=== PATIENT | male | born 1950 | race Caucasian/White ===

== ENCOUNTER → 2023-11-04 08:00 | Outpatient (REF) | payer MEDICARE, BC, SELFPAY | LOC: HWRAD 08:00 | PROVIDERS: ATTENDING PHYSICIAN Internal Medicine Cardiovascular Disease; FAMILY PHYSICIAN Family Medicine | DX: I71.40 Abdominal aortic aneurysm, without rupture, unspecified (principal) | CPT/HCPCS: 76770 ==

== ENCOUNTER → 2024-03-29 14:51 | Outpatient (REF) | payer MEDICARE, BC, SELFPAY | LOC: RAD 14:51 | PROVIDERS: ATTENDING PHYSICIAN Family Medicine | DX: R22.42 Localized swelling, mass and lump, left lower limb (principal) | CPT/HCPCS: 93971 ==

== ENCOUNTER 2024-04-29 20:44 | Emergency (ER) | payer MEDICARE, BC, SELFPAY ==
[2024-04-29 20:46] VITALS: BP 143/66; BMI 32.3
[2024-04-29 20:49] VITALS: BP 143/66
[2024-04-29 21:00] VITALS: BP 109/97
[2024-04-29 21:19] LABS: % Basophils 1.6 % (0-2); % Eosinophils 16.8 % (0-6); % Immature Granulocytes 0.3 % (0-0.5); % Lymphocytes 18.1 % (20.5-51.1); % Monocytes 6.8 % (1.7-9.3); % Neutrophils 56.4 % (42.2-75.2); Absolute Basophils 0.2 10^3/uL (0-0.2); Absolute Eosinophils 1.9 10^3/uL (0-0.7); Absolute Monocytes 0.8 10^3/uL (0.1-0.6); Absolute Neutrophils 6.3 10^3/uL (1.4-6.5); Hematocrit 42.4 % (39.0-52.0); Hemoglobin 14.2 g/dL (13.0-18.0); Mean Corp Hgb Conc. 33.5 g/dL (33.0-37.0); Mean Corpuscular Hgb 29.8 pg (27.0-31.0); Mean Corpuscular Volume 88.9 fL (80.0-94.0); Mean Platelet Volume 9.9 fL (7.4-10.4); Nucleated Red Blood Cells % 0 % (-); Platelet Count 243 10^3/uL (130-400); Red Blood Cell Count 4.77 10^6/uL (4.70-6.10); Red Cell Dist. Width 13.7 % (11.5-14.5); White Blood Cell Count 11.1 10^3/uL (4.8-10.8)
[2024-04-29 21:31] LABS: ALT (SGPT) 42 U/L (0-50); AST (SGOT) 36 U/L (17-59); Albumin 4.3 g/dl (3.5-5.0); Alkaline Phosphatase 80 U/L (38-126); Blood Urea Nitrogen 44 mg/dl (9-20); Calcium 9.2 mg/dl (8.4-10.2); Carbon Dioxide 17 mmol/L (22-30); Chloride 105 mmol/L (98-107); Estimated Creatinine Clearance 56 ml/min; Glucose 185 mg/dl (70-99); Magnesium 2.1 mg/dl (1.6-2.3); Potassium 4.8 mmol/L (3.5-5.1); Sodium 139 mmol/L (135-145); Total Bilirubin 0.6 mg/dl (0.2-1.3); Total Protein 7.2 g/dl (6.3-8.2)
--- NOTE | 2024-04-29 21:31 | ED.GENMED ---
History of Present Illness
General
Chief Complaint: Cardiac Symptoms
Source: patient and spouse
Time Seen by Provider: 04/29/24 21:02
History of Present Illness
History of Present Illness:
73-year-old male with past medical history of CAD, AAA, hypertension, hyperlipidemia, insulin-dependent diabetes presenting to the emergency department for evaluation after stating around 6:30 PM he started to feel 'not right' checked his pulse and
reports the pulse oximeter said his heart rate was around 37 bpm. Patient states that he never felt as if he were going to syncopized, no chest pain, no shortness of breath or any other symptoms. Upon EMS arrival they report that patient was in a
sinus rhythm in the 70s with occasional PVCs but was otherwise stable. Patient states he believes he has had episodes of similar before and has worn Holter monitors with cardiology in the past. Patient takes Eliquis due to a history of atrial
fibrillation and also reports that he is on a beta-vero and is readily compliant with his medication regimen. Patient denies any fevers or infectious symptoms. During my examination patient reports he feels quite well and is otherwise
asymptomatic.
Past History
Past History
ED Past Medical History: CAD, HTN, Hypercholesterolemia, IDDM and Other (AAA)
ED Past Surgical History: Cardiac and Orthopedic
Social History
Tobacco: Non-smoker
Alcohol: None
Drug: None
Personal:
Living: with family
Review of Systems
Review of Systems
All Other Systems: ROS reviewed and negative except as documented in HPI and ROS
Phy Exam
Physical Exam
Physical Exam:
GENERAL: Alert , in no apparent distress
EYE: conjunctiva clear
NECK: Supple
ENT: o/p clr, mmm.
CARDIAC: Regular rate and rhythm
LUNGS: Clear breath sounds bilaterally, no acute respiratory distress, no wheezes/rales/rhonchi
ABDOMEN: soft, non-tender, non-distended
NEUROLOGICAL: Alert and oriented
SKIN: Warm and dry, skin intact.
MUSCULOSKELETAL: well perfused.
PSYCH: Normal and appropriate interaction.
Scores
Heart Failure Risk
Heart Failure Risk Score: Not Applicable
Heart Score for Chest Pain Patients
STEMI patient?: No
History: Slightly or Non-Suspicious
ECG: Normal
Age: >/= 65 years
Risk Factors: >/= 3 Risk Factors or History of CAD
Troponin: </= Normal Limit
Heart Score for Chest Pain Patients: 4
Heart Score Risk: 20.3% MACE over next 6 weeks
Withdrawal Assessment of Alcohol
Withdrawal Assessment Completed?: Not applicable
Course
Orders/Labs/Results
Orders:
Orders
04/29/24 20:55
Electrocardiogram (*1) Urgent
Reason for Study: Chest Pain
Cardiac Monitoring- Treatment ONCE
EKG- Treatment ONCE
IV Insert/Care/Rem.- Treatment PRN
Pulse Ox/spot Check [RESP] Urgent
Quantity: 1
Special Instructions: ON ROOM AIR
04/29/24 21:06
Complete Blood Count/With Diff Urgent
Comprehensive Metabolic Panel Urgent
Magnesium Urgent
TSH Reflex To Free T4 Urgent
Troponin I Urgent
04/29/24 21:39
0.9% Sodium Chloride 1000 ml [Nss] 1,000 ml IV BOLUS
Abnormal Lab Results
04/29/24
21:06
WBC 11.1 H 10^3/uL
(4.8-10.8)
Absolute Monos (auto) 0.8 H 10^3/uL
(0.1-0.6)
Absolute Eos (auto) 1.9 H 10^3/uL
(0-0.7)
Lymphocytes % 18.1 L %
(20.5-51.1)
Eosinophils % 16.8 H %
(0-6)
Carbon Dioxide 17 L mmol/L
(22-30)
BUN 44 H mg/dl
(9-20)
Creatinine 1.4 H mg/dL
(0.7-1.3)
Glucose 185 H mg/dl
(70-99)
04/29/24 21:06
04/29/24 21:06
Vital Signs
Initial and Last Documented VS:
Initial Vital Signs
Temp Pulse Resp BP Pulse Ox
98.5 F 71 20 143/66 96
04/29/24 20:46 04/29/24 20:46 04/29/24 20:46 04/29/24 20:46 04/29/24 20:46
Last Documented Vital Signs
Temp Pulse Resp BP Pulse Ox
98.5 F 61 20 138/67 93
04/29/24 20:46 04/29/24 23:00 04/29/24 23:00 04/29/24 23:00 04/29/24 23:00
MDM/Problems Addressed
Differential Diagnosis Includes:
Symptomatic bradycardia, PVCs, valvular dysfunction, ACS presentation
MDM/Problems Addressed:
73-year-old male presenting the emergency department for evaluation of generally feeling unwell earlier this evening around 630, took his pulse ox using the new pulse oximeter and states his heart rate was found to be in the 30s. contacted EMS
at the time who states that upon arrival patient is in a sinus rhythm in the 70s. EKG here confirms patient remains in a normal sinus rhythm. He is asymptomatic. Will check labs and continue to monitor on telemetry. Patient known to [facility]
cardiology
Chronic conditions affecting care: CAD
*Pulse Oximetry
Patient hypoxic: no
*EKG
Comparison EKG: changes noted
Heart Rate: 69
Rate: normal
Rhythm: sinus
[place]: normal axis
Interval: first degree heart block
QRS Pattern: right bundle branch block
*Pilot Control Operator Interpretation
Rate: normal
Rhythm: sinus
*Critical Care Note
Total Time (30-74mins, 75-104mins- exclusive of procedures): Not Applicable
Data Reviewed
Review of Other/Old Records Reveals: Labs and Records
Comment
Comment:
Patient's labs show a mild EMILIO compared to his usual chronic kidney disease. 1 L of IV fluids ordered. Patient advised on these findings and recommended follow-up with primary care provider. He does also have a scheduled follow-up visit the first
week of May with his cardiology. Anticipate discharge home following completion of IV fluids.
Patient Management
Escalation/DeEscalation of care consider admission/obs:
Patient remains asymptomatic, tolerating p.o. and feels well to be discharged home. Aware of return precautions to the ER. Chest pain hotline notified. Stable for discharge home otherwise
ED Attending Note
-
Portions of this chart may have been created with voice recognition software.� Occasional wrong word or��sound alike� substitutions may have occurred due to the inherent limitations of voice recognition software.
Discharge Plan
Departure
Patient Disposition: Home (Routine Discharge)
Date of Disposition: 04/29/24
Time of Disposition: 23:01
Patient with high blood pressure during this ER visit?: No
Discharge Problem:
EMILIO (acute kidney injury)
Instructions: Acute kidney injury, Chest Pain [facility] Follow Up
Prescriptions:
No Action
bupropion HCl [Wellbutrin] 75 MG tablet
75 mg PO DAILY
Patient Comments:
Pt cannot remember if he took his AM medications which include lopressor, wellbutrin, accupril, ASA, glucophage, and levimir.
metoprolol tartrate [Lopressor] 50 MG tablet
50 mg PO BID
aspirin 81 MG tablet,chewable
81 mg PO DAILY
atorvastatin 80 MG tablet
80 mg PO QPM
Jardiance 25 MG tablet
25 mg PO DAILY
zolpidem 5 MG tablet
2.5 mg PO HSPRN PRN (Reason: insomnia)
ezetimibe 10 MG tablet
10 mg PO DAILY
metformin 1,000 MG tablet
1,000 mg PO BID
insulin glargine [Lantus U-100 Insulin] 100 unit/mL Solution
45 unit SC DAILY
lisinopril 20 mg Tablet
20 mg PO DAILY
amlodipine [Norvasc] 5 mg Tablet
5 mg PO DAILY
Eliquis 5 mg Tablet
5 mg PO BID
insulin aspart U-100 [Novolog FlexPen U-100 Insulin] 300 UNITS/3 ML insulin pen
See Rx Instructions .ROUTE .COMPLEX
Rx Instructions:
14-31 units sliding scale
Kerendia 10 mg Tablet
10 mg PO DAILY
Referrals:
Wang Bynum MD [Family Provider] -
Interventions
Interventions:
*Risk Screen - Suicide Last Done: 04/29/24 20:46
*General Assessment Last Done: 04/29/24 20:46
*Neglect/Abuse Screening Last Done: 04/29/24 20:46
ED- Fall Risk Assessment Last Done: 04/29/24 21:18
*ED COVID-19 Vaccine History Last Done: 04/29/24 20:46
ED- Pulmonary Assessment Last Done: 04/29/24 21:18
ED- Cardiac Assessment Last Done: 04/29/24 21:18
Discharge Date and Time
Print Language: MOZAMBICAN
[2024-04-29 21:42] LABS: Troponin I < 0.012 ng/ml
[2024-04-29 22:00] VITALS: BP 120/56
[2024-04-29 22:01] LABS: TSH Reflex To Free T4 1.76 uIU/ml (0.47-4.68)
[2024-04-29] MEDS: NSS 1000 IV (22:05)
[2024-04-29 23:00] VITALS: BP 138/67
== END 2024-04-29 23:12 | disposition home or self-care (01) ==
LOC: EMR 20:44
PROVIDERS: EMERGENCY PHYSICIAN Emergency Medicine; FAMILY PHYSICIAN Radiology Vascular & Interventional Radiology
DX: N17.9 Acute kidney failure, unspecified (principal); I25.10 Atherosclerotic heart disease of native coronary artery without angina pectoris; I10 Essential (primary) hypertension; E78.00 Pure hypercholesterolemia, unspecified; E11.9 Type 2 diabetes mellitus without complications; I48.91 Unspecified atrial fibrillation; Z79.01 Long term (current) use of anticoagulants; Z86.79 Personal history of other diseases of the circulatory system
CPT/HCPCS: 99283; 96360; 80053; 83735; 84443; 84484; 85025; 93005

== ENCOUNTER → 2024-05-17 07:01 | Outpatient (REF) | payer MEDICARE, BC, SELFPAY | LOC: HWRCS 07:01 | PROVIDERS: ATTENDING PHYSICIAN Physician Assistant Medical; FAMILY PHYSICIAN Family Medicine | DX: R00.2 Palpitations (principal); Z95.3 Presence of xenogenic heart valve | CPT/HCPCS: 93306 ==

== ENCOUNTER → 2024-06-13 07:33 | Outpatient (REF) | payer MEDICARE, BC, SELFPAY | LOC: RAD 07:33 | PROVIDERS: ATTENDING PHYSICIAN Surgery Vascular Surgery; FAMILY PHYSICIAN Family Medicine | DX: I71.40 Abdominal aortic aneurysm, without rupture, unspecified (principal) | CPT/HCPCS: 76770 ==

== ENCOUNTER → 2024-11-25 07:05 | Outpatient (REF) | payer MEDICARE, BC, SELFPAY | LOC: RAD 07:05 | PROVIDERS: ATTENDING PHYSICIAN Family Medicine | DX: R60.9 Edema, unspecified (principal) | CPT/HCPCS: 93971 ==

== ENCOUNTER → 2025-01-10 06:25 | Outpatient (REF) | payer MEDICARE, BC, SELFPAY | LOC: RAD 06:25 | PROVIDERS: ATTENDING PHYSICIAN Registered Nurse; FAMILY PHYSICIAN Family Medicine | DX: I71.43 Infrarenal abdominal aortic aneurysm, without rupture (principal) | CPT/HCPCS: 76770 ==

== ENCOUNTER 2025-02-02 06:24 | Day surgery (SDC) | payer MEDICARE, BC, SELFPAY ==
[2025-02-02 07:38] LABS: Glucose - Point of Care 157 mg/dl (70-99)
== END 2025-02-02 09:20 | disposition home or self-care (01) ==
LOC: GI 06:24
PROVIDERS: ATTENDING PHYSICIAN Internal Medicine Gastroenterology
DX: Z12.11 Encounter for screening for malignant neoplasm of colon (principal); K57.30 Diverticulosis of large intestine without perforation or abscess without bleeding; K64.8 Other hemorrhoids; D12.2 Benign neoplasm of ascending colon; D12.0 Benign neoplasm of cecum
CPT/HCPCS: 45385; 45381; 82962; 88305